=== PATIENT | female | born 1990 | race Caucasian/White ===

== ENCOUNTER 2016-08-20 14:46 | Inpatient (IN) | payer OTHER ==
[~2016-08-20] VITALS: Ht 172.7 cm; Wt 97.3 kg
[2016-08-20] VITALS (12 sets, daily range): BP systolic 106–140; BP diastolic 58–83; PULSE 72–95; TEMP 97.4–97.7
[~2016-08-20 14:46] MED LIST: COLACE 100100 MG/CAP PO; IBU600 MG PO; PERCOCET 325 MG1 TA2 PO; PRENATAL MVI PO
[2016-08-20 15:18] LABS: HEMOGLOBIN 13.7 g/dl (12.5-16.0); MEAN CELL VOLUME 88 fl (80.0-100.0); MEAN CORPUSCULAR HEMOGLOBIN 31 pg (27.0-31.0); MEAN CORPUSCULAR HGB CONC 35 g/dl (33.0-37.0); MEAN PLATELET VOLUME 11.4 fl (7.4-10.4); PLATELET COUNT 160 K/mm3 (130-400); RED BLOOD COUNT 4.45 M/mm3 (4.10-5.30); REDCELL DISTRIBUTION WIDTH-CV 13.4 % (11.5-14.5); WHITE BLOOD COUNT 11.5 K/mm3 (4.8-10.8)
[2016-08-20 15:29] LABS: ADD PATHOLOGY DIFF REVIEW NO
[2016-08-20 16:18] LABS: BAND 18 % (0-10); BASOPHIL 1 % (0-2); NEUTROPHILS 66 % (42.0-75.2); PLATELET ESTIMATE NORMAL (NORMAL); TOTAL CELLS COUNTED 100
[2016-08-21 00:30] VITALS: BP 111/73; PULSE 94; TEMP 97.8
[2016-08-21 08:26] VITALS: BP 107/55; PULSE 87; TEMP 97.5
[2016-08-21] MEDS ORDERED: IBU600 MG PO (08:38)
[2016-08-21 16:00] VITALS: BP 111/60; PULSE 84; TEMP 98
== END 2016-08-21 18:50 | disposition home or self-care (01) | DRG 775 ==
LOC: LDRO 14:46 → LDR 15:03 → OB 19:00
PROVIDERS: Obstetrics & Gynecology
PROC: 10E0XZZ Delivery of Products of Conception, External Approach (ICD-10-PCS; principal; 2016-08-20)
PROC: 0KQM0ZZ Repair Perineum Muscle, Open Approach (ICD-10-PCS; 2016-08-20)
DX: O70.1 Second degree perineal laceration during delivery (principal); Z37.0 Single live birth; Z3A.38 38 weeks gestation of pregnancy
CPT/HCPCS: J2590; J7120